=== PATIENT | female | born 1995 | race Caucasian/White ===

== ENCOUNTER 2019-11-28 11:53 | Emergency (ER) | payer BC ==
[~2019-11-28] VITALS: Ht 167.6 cm; Wt 79.2 kg
[2019-11-28 12:22] LABS: BASO % 0 % (0-3); EOS # 0.2 x10^3/uL (0.0-0.7); EOS % 3 % (0-3); HEMATOCRIT 41.4 % (36.0-47.0); HEMOGLOBIN 13.7 g/dL (12.0-15.5); LYMPH # 2.1 x10^3/uL (1.0-4.8); LYMPH % 28 % (24-48); MEAN CORPUSCULAR HEMOGLOBIN 29 pg (25-35); MEAN CORPUSCULAR HGB CONC 33 g/dL (31-37); MEAN CORPUSCULAR VOLUME 89 fL (79-100); MONO # 0.8 x10^3/uL (0.0-1.1); MONO % 11 % (0-9); NEUT # 4.2 x10^3uL (1.8-7.7); NEUT % 57 % (31-73); PLATELET COUNT 262 x10^3/uL (140-400); RED BLOOD COUNT 4.66 x10^6/uL (3.50-5.40); RED CELL DISTRIBUTION WIDTH 13.1 % (11.5-14.5); WHITE BLOOD COUNT 7.4 x10^3/uL (4.0-11.0)
[2019-11-28 12:29] LABS: CALCIUM 9.4 mg/dL (8.5-10.1); CREATININE 0.7 mg/dL (0.6-1.0); GFR 103.7
[2019-11-28] MEDS ORDERED: LIDO:MAALOX 1:1 20 ML SINGLE DOSE. PO ONE (12:30)
--- NOTE | 2019-11-28 12:35 | PHYS DOC ---
Adult General Chief Complaint Chief Complaint: CHEST PAIN HPI HPI 24-year-old female presents with chest pain. She states that the pain started 2 days ago. She had this discomfort when she woke up. At its worst it has been a 10 out of 10, which was this morning when she woke up. It is currently 7 out of 10. She describes it as a crampy pain. She denies diaphoresis or shortness of breath. There does not seem to be any pattern to when it comes and goes. She has not noticed an association with food. It is not better or worse with exertion. She denies fever or chills. She has had a mild dry cough for over 2 months. She has no COVID 19 risk factors. No significant medical history. She does not take any daily medications. Denies smoking, vaping or drug use. Review of Systems Review of Systems Constitutional: Denies fever or chills [] Eyes: Denies change in visual acuity, redness, or eye pain [] HENT: Denies nasal congestion or sore throat [] Respiratory: Denies cough or shortness of breath [] Cardiovascular: No additional information not addressed in HPI [] GI: Denies abdominal pain, nausea, vomiting, bloody stools or diarrhea [] : Denies dysuria or hematuria [] Musculoskeletal: Denies back pain or joint pain [] Integument: Denies rash or skin lesions [] Neurologic: Denies headache, focal weakness or sensory changes [] Endocrine: Denies polyuria or polydipsia [] All other systems were reviewed and found to be within normal limits, except as documented in this note. Allergies Allergies Allergies Coded Allergies Type Severity Reaction Last Updated Verified No Known Drug Allergies 11/28/19 No Physical Exam Physical Exam Constitutional: Well developed, well nourished, no acute distress, non-toxic appearance. [] HENT: Normocephalic, atraumatic, bilateral external ears normal, oropharynx moist, no oral exudates, nose normal. [] Eyes: PERRLA, EOMI, conjunctiva normal, no discharge. [] Neck: Normal range of motion, no tenderness, supple, no stridor. [] Cardiovascular:Heart rate regular rhythm, no murmur [] Lungs & Thorax: Bilateral breath sounds clear to auscultation [] Abdomen: Bowel sounds normal, soft, mild epigastric tenderness, no masses, no pulsatile masses. [] Skin: Warm, dry, no erythema, no rash. [] Back: No tenderness, no CVA tenderness. [] Extremities: No tenderness, no cyanosis, no clubbing, ROM intact, no edema. [] Neurologic: Alert and oriented X 3, normal motor function, normal sensory function, no focal deficits noted. [] Psychologic: Affect normal, judgement normal, mood normal. [] EKG EKG Sinus rhythm, rate 79, normal axis, no salivation or depression.[] Radiology/Procedures Radiology/Procedures [] Impressions: Examination: CHEST AP ONLY History: Chest pain Comparison: None. Findings: AP portable upright frontal view of the chest was obtained. The cardiomediastinal silhouette is normal. Lungs are clear. There is no pneumothorax. No pleural effusion is appreciated. No acute bone abnormality. IMPRESSION: No acute cardiopulmonary process. Electronically signed by: Te Browne MD (11/28/2019 1:10 PM) [id number] DICTATED AND SIGNED BY: TE BROWNE MD DATE: 11/28/191309 CC: ELVI RODRIGUEZ DO; PCP,NO ~ Course & Med Decision Making Course & Med Decision Making Pertinent Labs and Imaging studies reviewed. (See chart for details) The patient's labs are unremarkable as negative. Her EKG is unremarkable. Her chest x-ray raises negative for acute findings. Given her a GI cocktail. I suspect this might have a GERD component. This is only helped her minimally. Advised that she try a 14 day course of proton pump inhibitor. She will also follow up with her primary care physician. She is stable for discharge at this time. [] Dragon Disclaimer Dragon Disclaimer This electronic medical record was generated, in whole or in part, using a voice recognition dictation system. The HEART Score for CP Pts HEART Score for Chest Pain: HEART Score for Chest Pain Response (Comments) Value History Slighlty/Non-Suspicious 0 ECG Normal 0 Age < 45 0 Risk Factors No Risk Factors 0 Troponin < Normal Limit 0 Total 0 Risk Factors: Risk Factors: DM, Current or recent (<one month) smoker, HTN, HLP, family history of CAD, obesity. Risk Scores: Score 0 - 3: 2.5% MACE over next 6 weeks - Discharge Home Score 4 - 6: 20.3% MACE over next 6 weeks - Admit for Clinical Observation Score 7 - 10: 72.7% MACE over next 6 weeks - Early Invasive Strategies Departure Departure: Impression: Primary Impression: Chest pain Additional Impression: GERD (gastroesophageal reflux disease) Disposition: 01 HOME, SELF-CARE Condition: STABLE Referrals: PCP,NO (PCP) Patient Instructions: Chest Pain (Nonspecific), [id number], Gastroesophageal Reflux Disease, Adult, [id number] Additional Instructions: Please try taking omeprazole daily for 2 weeks. This is available as a generic medication without prescription. This will take a couple of days to have affect. You can also take Pepcid or Zantac in addition to the omeprazole for the next 2 days. Use the directions on the package. It is a good idea to inform your primary care physician of your emergency room visit and this treatment plan so they can follow up with you later. Problem Qualifiers Primary Impression: Chest pain Chest pain type: unspecified Qualified Codes: R07.9 - Chest pain, unspecified Additional Impression: GERD (gastroesophageal reflux disease) Esophagitis presence: esophagitis presence not specified Qualified Codes: K21.9 - Gastro-esophageal reflux disease without esophagitis ELVI RODRIGUEZ DO Nov 28, 2019 12:35
[2019-11-28 12:36] LABS: ALBUMIN 4.2 g/dL (3.4-5.0); ALBUMIN/GLOBULIN RATIO 1.2 (1.0-1.7); TOTAL BILIRUBIN 0.4 mg/dL (0.2-1.0); TOTAL PROTEIN 7.6 g/dL (6.4-8.2)
[2019-11-28] MEDS ORDERED: LIDO:MAALOX 1:1 20 ML SINGLE DOSE. ONE (12:38)
[2019-11-28 12:47] LABS: CLARITY,URINE CLEAR; COLOR,URINE STRAW
[2019-11-28 12:48] LABS: BILIRUBIN,URINE NEG (NEG); GLUCOSE,URINE NEG (NEG); UROBILINOGEN,URINE 0.2 mg/dL (0.2 mg/dL)
[2019-11-28 12:49] LABS: NITRITE,URINE NEG (NEG)
[2019-11-28 12:54] LABS: BACTERIA,URINE MOD /HPF (0-FEW); SQUAMOUS EPITHELIAL CELL,UR MOD /LPF; WBC,URINE RARE /HPF (0-4)
[2019-11-28 12:55] LABS: RBC,URINE RARE /HPF (0-2)
[2019-11-28 13:08] VITALS: BP 120/50
--- NOTE | 2019-11-28 13:13 | RAD ---
Examination: CHEST AP ONLY History: Chest pain Comparison: None. Findings: AP portable upright frontal view of the chest was obtained. The cardiomediastinal silhouette is normal. Lungs are clear. There is no pneumothorax. No pleural effusion is appreciated. No acute bone abnormality. IMPRESSION: No acute cardiopulmonary process. Electronically signed by: Dany Mccabe MD (11/28/2019 1:10 PM) [id number]
--- NOTE | 2019-11-28 14:44 | EKG ---
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
== END 2019-11-28 13:33 | disposition home or self-care (01) ==
LOC: ER 11:53
DX: K21.9 Gastro-esophageal reflux disease without esophagitis (principal)
CPT/HCPCS: 36415; 71045; 80053; 81001; 81025; 83690; 84484; 85025; 87086; 93005; 99285

== ENCOUNTER 2020-09-05 14:22 | Emergency (ER) | payer BC ==
[~2020-09-05] VITALS: Ht 167.6 cm; Wt 79.2 kg
[2020-09-05 14:34] VITALS: BP 127/76
[2020-09-05] MEDS ORDERED: ONDANSETRON ODT 4 MG TAB.RAPDIS PO ONE (15:00)
--- NOTE | 2020-09-05 15:25 | RAD ---
CT HEAD AND C-SPINE WO Date: 09/05/2020 2:58 PM Clinical Indication: Reason: FALL, BLUNT TRAUMA, HEAD AND C-SPINE PAIN / Spl. Instructions: / Histor y: Comparison: None. Technique: 5 mm axial tomographic images were obtained of the head without contrast. These were view ed on brain and bone windows. CT imaging of the cervical spine was performed without contrast. Coron al and sagittal reformatted images were performed. One or more of the following dose reduction techni ques were utilized: Automated exposure control (AEC), Adjustment of mA and/or kV according to patient size, Use of iterative reconstruction technique such as ASiR, CT scan done according to ALARA and im age gently/image wisely HEAD FINDINGS: The brain parenchyma is normal in attenuation. No intra- or extra-axial mass or fluid collection. No acute hemorrhage. The ventricles are normal in size, shape, and morphology. The mccoy-white matter ludmila ction is normal. The basilar cisterns are patent. The visualized paranasal sinuses are normal. The visualized portions of the orbits and globes are no rmal. The mastoid air cells are clear. No aggressive osseous lesion or fracture. CERVICAL SPINE FINDINGS: Straightening of the cervical lordosis. No acute fracture. No aggressive lytic or blastic osseous les ion. The intervertebral disc heights are maintained. No high-grade spinal canal stenosis or neural foramin al narrowing. The thyroid gland is normal. No cervical lymphadenopathy. The visualized aerodigestive tract is unrem arkable. The visualized lung apices are clear. IMPRESSION: 1. No acute intracranial process. 2. No acute osseous abnormality of the cervical spine. Electronically signed by: Edvin Gayle MD (09/05/2020 3:22 PM) [id number]
--- NOTE | 2020-09-05 15:26 | RAD ---
CT LUMBAR SPINE WO Date: 09/05/2020 2:58 PM Indication: Reason: FALL, BLUNT TRAUMA,LUMBAR SPINE PAIN / Spl. Instructions: / History: Comparison: None. Technique: Helical CT images of the lumbar spine were obtained without contrast. Coronal and sagitta l reformatted images were also performed. One or more of the following dose reduction techniques were utilized: Automated exposure control (AEC), Adjustment of mA and/or kV according to patient size, Us e of iterative reconstruction technique such as ASiR, CT scan done according to ALARA and image gentl y/image wisely. Findings: The lumbar spine is normally aligned. No acute fracture. Vertebral body heights are maintained withou t compression deformity. The intervertebral disc spaces are normal. No aggressive lytic or blastic os seous lesion. No high grade spinal canal stenosis or neuroforaminal narrowing. No soft tissue abnormality within the visualized abdomen or pelvis. The visualized abdominal aorta is normal caliber. IMPRESSION: No acute osseous abnormality of the lumbar spine. Electronically signed by: Edvin Gayle MD (09/05/2020 3:23 PM) [id number]
--- NOTE | 2020-09-05 15:59 | PHYS DOC ---
Past History Past Medical History: No Pertinent History Past Surgical History: No Surgical History Alcohol Use: None Adult General Chief Complaint Chief Complaint: MECHANICAL FALL HPI HPI Patient is a 24-year-old female who reports that if she was walking down some outdoor steps she slipped on the ice falling backwards hitting the back of her head and neck and low back on the bottom 3 steps. Patient denies loss of consciousness. She denies any visual changes, numbness or tingling to her extremities. Patient denies any abdominal pain, chest pain, shortness of breath, nasal congestion. Patient states this happened at approximately 1300 today. Patient states initially she does have a some minor pain and she thought she would be okay but she started feeling nauseated and feeling very tired, patient discussed this with her who became worried that she might have a concussion. Patient states that she is here to make sure she does not have a concussion. Patient denies any surgical history, denies taking any tkxn-cuc-qnbzkuw medications or prescription medications at home, has no allergies to medications. Patient denies any other physical complaints or illnesses. Patient denies incontinence of bowel or bladder. Patient states her last menstrual period was 1 week ago. Patient states her pain is mild and does not really need anything for her discomfort rating her pain a 4/10 on a 1-10 pain scale Review of Systems Review of Systems 14 body systems of review of systems have been reviewed. See HPI for pertinent positives and negative responses, otherwise all other systems are negative, nonpertinent or noncontributory. Current Medications Current Medications Current Medications Medications (Trade) Dose Ordered Sig/Mikhail Start Time Stop Time Status Last Admin Dose Admin Ondansetron HCl (Zofran Odt) 4 mg 1X ONCE 09/05/20 15:00 09/05/20 15:01 [place] Allergies Allergies Allergies Coded Allergies Type Severity Reaction Last Updated Verified No Known Drug Allergies 11/28/19 No Physical Exam Physical Exam Constitutional: Well developed, well nourished, no acute distress, non-toxic appearance. HENT: Normocephalic, atraumatic, bilateral external ears normal, oropharynx moist, no oral exudates, nose normal. Occipital pain to palpation, no depressions, no crepitus appreciated, skin intact. Eyes: PERRLA, EOMI, conjunctiva normal, no discharge. Neck: Normal range of motion, no tenderness, supple, no stridor. Midline spinal tenderness, no nuchal rigidity, no meningeal signs. No crepitus appreciated, no ecchymosis, no edema, no swelling appreciated. Cardiovascular:Heart rate regular rhythm, no murmur Lungs & Thorax: Bilateral breath sounds clear to auscultation Abdomen: Bowel sounds normal, soft, no tenderness, no masses, no pulsatile masses. Skin: Warm, dry, no erythema, no rash. Back: No tenderness, no CVA tenderness. Lumbar area spinal tenderness, no crepitus appreciated, no ecchymosis appreciated, no swelling noted. Extremities: No tenderness, no cyanosis, no clubbing, ROM intact, no edema. Neurologic: Alert and oriented X 3, normal motor function, normal sensory function, no focal deficits noted. Psychologic: Affect normal, judgement normal, mood normal. Current Patient Data Vital Signs Vital Signs Date Time Temp Pulse Resp B/P (MAP) Pulse Ox O2 Delivery O2 Flow Rate FiO2 09/05/20 14:34 65 18 127/76 (93) 97 EKG EKG [] Radiology/Procedures Radiology/Procedures SEX: F EXAM STATUS: REG ER ORD. PHYSICIAN: SALLY MITCHELL APRN REASON: FALL, BLUNT TRAUMA,LUMBAR SPINE PAIN PROCEDURE: CT LUMBAR SPINE WO CONTRAST CT LUMBAR SPINE WO Date: 09/05/2020 2:58 PM Indication: Reason: FALL, BLUNT TRAUMA,LUMBAR SPINE PAIN / Spl. Instructions: / History: Comparison: None. Technique: Helical CT images of the lumbar spine were obtained without con trast. Coronal and sagittal reformatted images were also performed. One or more of the following dose reduction techniques were utilized: Automated exposure control (AEC), Adjustment of mA and/or kV according to patient size, Use of iterative reconstruction technique such as ASiR, CT scan done according to ALARA and image gently/image wisely. Findings: The lumbar spine is normally aligned. No acute fracture. Vertebral body heights are maintained without compression deformity. The intervertebral disc spaces are normal. No aggressive lytic or blastic osseous lesion. No high grade spinal canal stenosis or neuroforaminal narrowing. No soft tissue abnormality within the visualized abdomen or pelvis. The visualized abdominal aorta is normal caliber. IMPRESSION: No acute osseous abnormality of the lumbar spine. Electronically signed by: Jacobo Pham MD (09/05/2020 3:23 PM) [id number] DICTATED AND SIGNED BY: JACOBO PHAM MD DATE: 09/05/20 1522 CC: SALLY MITCHELL APRN; PCP,NO ~MTH0 0 SEX: F EXAM STATUS: REG ER ORD. PHYSICIAN: SALLY MITCHELL APRN REASON: FALL, BLUNT TRAUMA, HEAD AND C-SPINE PAIN PROCEDURE: CT HEAD AND CERVICAL SPINE WO CT HEAD AND C-SPINE WO Date: 09/05/2020 2:58 PM Clinical Indication: Reason: FALL, BLUNT TRAUMA, HEAD AND C-SPINE PAIN / Spl. Instructions: / History: Comparison: None. Technique: 5 mm axial tomographic images were obtained of the head without contrast. These were viewed on brain and bone windows. CT imaging of the cervical spine was performed without contrast. Coronal and sagittal reformatted images were performed. One or more of the following dose reduction techniques were utilized: Automated exposure control (AEC), Adjustment of mA and/or kV according to patient size, Use of iterative reconstruction technique such as ASiR, CT scan done according to ALARA and image gently/image wisely HEAD FINDINGS: The brain parenchyma is normal in attenuation. No intra- or extra-axial mass or fluid collection. No acute hemorrhage. The ventricles are normal in size, shape, and morphology. The mccoy-white matter junction is normal. The basilar cisterns are patent. The visualized paranasal sinuses are normal. The visualized portions of the orbits and globes are normal. The mastoid air cells are clear. No aggressive osseous lesion or fracture. CERVICAL SPINE FINDINGS: Straightening of the cervical lordosis. No acute fracture. No aggressive lytic or blastic osseous lesion. The intervertebral disc heights are maintained. No high-grade spinal canal stenosis or neural foraminal narrowing. The thyroid gland is normal. No cervical lymphadenopathy. The visualized aerodigestive tract is unremarkable. The visualized lung apices are clear. IMPRESSION: 1. No acute intracranial process. 2. No acute osseous abnormality of the cervical spine. Electronically signed by: Jacobo Pham MD (09/05/2020 3:22 PM) [id number] DICTATED AND SIGNED BY: JACOBO PHAM MD DATE: 09/05/20 1519 CC: SALLY MITCHELL APRN; PCP,NO ~MTH0 0 Heart Score Risk Factors: Risk Factors: DM, Current or recent (<one month) smoker, HTN, HLP, family history of CAD, obesity. Risk Scores: Risk Factors: DM, Current or recent (<one month) smoker, HTN, HLP, family history of CAD, obesity. Course & Med Decision Making Course & Med Decision Making Pertinent Labs and Imaging studies reviewed. (See chart for details) 24-year-old female patient slipped on snow while walking down steps falling down the last 3 steps striking the back of her head neck and low back. There was no saddle anesthesia, no meningismus signs, she did have back of head, C-spine and L-spine midline spinal tenderness, a cervical collar was placed, CTs were ordered. Patient did complain of some nausea, oral Zofran was ordered. CTs were negative for acute fracture or abnormalities per house radiologist interpretation, patient's nausea was resolved upon reexamination. C-collar removed, discussed findings with patient, patient gave verbal understanding of discharge home instructions, return to ER precautions and concerns, patient had no further questions or concerns, patient discharged home without incident. Impression: #1 fall due to slipping on ice or snow #2 contusion of head #3 contusion of neck #4 contusion of lumbar #5 concussion Dragon Disclaimer Dragon Disclaimer This electronic medical record was generated, in whole or in part, using a voice recognition dictation system. Departure Departure: Impression: Primary Impression: Fall due to slipping on ice or snow Additional Impressions: Concussion Contusion of head Contusion of neck Lumbar contusion Disposition: 01 DC HOME SELF CARE/HOMELESS Condition: GOOD Referrals: PCP,NO (PCP) Patient Instructions: Concussion and Brain Injury, RICE - Routine Care for Injuries Additional Instructions: You are seen in the emergency department for a slip and fall on the snow and ice injuring your head your neck and your low back, CT scans were performed and there was no acute injury, there was no broken bones, there was no fractures. There was no bleeding in your brain, there is no sign of stroke in your brain. You most likely experience post concussive type symptoms. Please use ice to your sore areas and jqrp-adm-zlwdsch ibuprofen and/or Tylenol for aches and pains. Please return to the emergency department worsening symptoms or other concerns. Please follow-up with your primary care doctor for reevaluation. EMERGENCY DEPARTMENT GENERAL DISCHARGE INSTRUCTIONS Thank you for coming to [facility] (ED) today and trusting us with you care. We trust that you had a positivie experience in our Emergency Department. If you wish to speak to the department management, you may call the director at [phone]. YOUR FOLLOW UP INSTRUCTIONS ARE FOLLOWS: 1. Do you have a private Doctor? If you do not have a private doctor, please ask for a resource list of physicians or clinics that may be able to assist you with follow up care. 2. The Emergency Physician has interpreted your x-rays. The X-Ray specialist will also review them. If there is a change in the findings, you will be notified in 48 hours when at all possible. 3. A lab test or culture has been done, your results will be reviewed and you will be notified if you need a change in treatment. ADDITIONAL INSTRUCTIONS AND INFORMATION: 1. Your care today has been supervised by a physician who is specially trained in emergency care. Many problems require more than one evaluation for a complete diagnosis and treatment. We recommend that you schedule your follow up appointment as recommended to ensure complete treatment of you illness or injury. If you are unable to obtain follow up care and continue to have a problem, or if your condition worsens, we recommend that you return to the ED. 2. We are not able to safely determine your condition over the phone nor are we able to give sound medical advice over the phone. For these safety reasons, if you call for medical advice we will ask you to come to the ED for further evaluation. 3. If you have any questions regarding these discharge instructions please call the ED at [phone]. SAFETY INFORMATION: In the interest of safety, wellness, and injury prevention; we encourage you to wear your sealbelt, if you smoke; quite smoking, and we encourage family to use a protective helmet for bicycling and other sporting events that present an increased risk for head injury. IF YOUR SYMPTOMS WORSEN OR NEW SYMPTOMS DEVELOP, OR YOU HAVE CONCERNS ABOUT YOUR CONDITION; OR IF YOUR CONDITION WORSENS WHILE YOU ARE WAITING FOR YOUR FOLLOW UP APPOINTMENT; EITHER CONTACT YOUR PRIMARY CARE DOCTOR, THE PHYSICIAN WHOSE NAME AND NUMBER YOU WERE GIVEN, OR RETURN TO THE ED IMMEDIATELY. Scripts Ibuprofen (IBUPROFEN) 600 Mg Tablet 600 MG PO TID PRN PRN for PAIN, #20 TAB 0 Refills Prov: SALLY MITCHELL ROUND KILN DRAWER 09/05/20 Problem Qualifiers Primary Impression: Fall due to slipping on ice or snow Encounter type: initial encounter Qualified Codes: W00.9XXA - Unspecified fall due to ice and snow, initial encounter Additional Impressions: Concussion Encounter type: initial encounter Loss of consciousness presence/duration: without LOC Qualified Codes: S06.0X0A - Concussion without loss of consciousness, initial encounter Contusion of head Encounter type: initial encounter Contusion of head detail: unspecified part of head Qualified Codes: S00.93XA - Contusion of unspecified part of head, initial encounter Contusion of neck Encounter type: initial encounter Qualified Codes: S10.93XA - Contusion of unspecified part of neck, initial encounter Lumbar contusion Encounter type: initial encounter Qualified Codes: S30.0XXA - Contusion of lower back and pelvis, initial encounter SALLY MITCHELL ROUND KILN DRAWER Sep 05, 2020 15:59
[2020-09-05] MEDS ORDERED: IBUP600T16 PO (16:16)
== END 2020-09-05 16:20 | disposition home or self-care (01) ==
LOC: ER 14:22
DX: S06.0X0A Concussion without loss of consciousness, initial encounter (principal); S10.93XA Contusion of unspecified part of neck, initial encounter; S00.93XA Contusion of unspecified part of head, initial encounter; S30.0XXA Contusion of lower back and pelvis, initial encounter; W00.0XXA Fall on same level due to ice and snow, initial encounter; Y93.01 Activity, walking, marching and hiking; Y92.89 Other specified places as the place of occurrence of the external cause; Y99.8 Other external cause status
CPT/HCPCS: 70450; 72125; 72131; 99285-25